=== PATIENT | female | born 1965 | race Caucasian/White ===

== ENCOUNTER 2016-08-24 11:50 | Emergency (ER) | payer OTHER ==
[~2016-08-24] VITALS: Ht 170.2 cm; Wt 75.0 kg
[~2016-08-24 11:50] MED LIST: ALBU18HF; BECL8.7A6 INHALATION; CHOL500050 PO; DIAZ5TAB PO; DULO30CA PO; GABA300C PO; HYDR50CA3 PO; IBUP800T28 PO; ONDA4TAB9 PO; PANT40TA3 PO; PROP120C2 PO; TRAM50TA2 PO; TRAZ-115 PO; VENL75CA95 PO
[2016-08-24 11:57] VITALS: PULSE 88; RESP 22; O2SAT 100
--- NOTE | 2016-08-24 12:50 | DRSVH ---
PROCEDURE: X-RAY FINGERS, TWO VIEWS INDICATIONS: Thumb swollen/black&blue/painful TECHNIQUE: AP hand, 2 views of the right first finger(s) acquired. COMPARISON: None. FINDINGS: Bones: No fractures or dislocations. No suspicious bony lesions. Mild first CMC osteoarthritic dege nerative changes are noted. Soft tissues: No suspicious soft tissue calcifications. IMPRESSION: No fracture. No osseous lesion. If symptoms and/or clinical suspicion for pathology pers ists, further assessment with repeat radiographs or advanced imaging (e.g. CT, MRI or bone scan) may be helpful for further assessment. Dictated by: Samantha Costa MD, PhD on 08/24/2016 at 12:49 Approved by: Samantha Costa MD, PhD on 08/24/2016 at 12:49
--- NOTE | 2016-08-24 12:52 | DRSVH ---
PROCEDURE: X-RAY RIGHT WRIST COMPLETE, MINIMUM THREE VIEWS ([id number]) INDICATIONS: swollen/black&blue/painful TECHNIQUE: 3 views of the wrist were acquired. COMPARISON: None. FINDINGS: Bones: No fractures or dislocations. No suspicious bony lesions. Scaphoid view: Scaphoid is intact Soft tissues: No suspicious soft tissue calcifications. IMPRESSION: No fracture. No acute osseous lesion. If symptoms and/or clinical suspicion for patholog y persists, further assessment with repeat radiographs or advanced imaging (e.g. CT, MRI or bone scan ) may be helpful for further assessment. Dictated by: Samantha Costa MD, PhD on 08/24/2016 at 12:51 Approved by: Samantha Costa MD, PhD on 08/24/2016 at 12:51
[2016-08-24] MEDS ORDERED: Ketorolac 30 mg/mL 2 mL Inj IM ONE (14:00)
--- NOTE | 2016-08-24 14:47 | DRSVH ---
PROCEDURE: X-RAY RIGHT FOREARM, TWO VIEWS ([id number]) INDICATIONS: arm pain TECHNIQUE: 2 views of the forearm were acquired. COMPARISON: None. FINDINGS: Bones: No fractures or dislocations. No suspicious bony lesions. Soft tissues: No suspicious soft tissue calcifications or masses. IMPRESSION: No trauma found. Source of pain is not seen. Dictated by: Matthieu Esquivel M.D. on 08/24/2016 at 14:45 Approved by: Matthieu Esquivel M.D. on 08/24/2016 at 14:45
--- NOTE | 2016-08-24 15:07 | DRSVH ---
PROCEDURE: X-RAY RIGHT ELBOW, TWO VIEWS ([id number]) INDICATIONS: arm pain TECHNIQUE: 2 views of the elbow were acquired. COMPARISON: None. FINDINGS: Bones: No fractures or dislocations. No suspicious bony lesions. Soft tissues: No elbow joint effusion. No suspicious soft tissue calcifications. IMPRESSION: No acute disease, source of pain is not seen. Dictated by: Matthieu Esquivel M.D. on 08/24/2016 at 15:05 Approved by: Matthieu Esquivel M.D. on 08/24/2016 at 15:05
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
[2016-08-24 18:16] VITALS: BP 128/85; RESP 18; O2SAT 99
== END 2016-08-24 18:17 | disposition home or self-care (01) ==
LOC: SED 11:50
DX: S60.221A Contusion of right hand, initial encounter (principal); Y04.0XXA Assault by unarmed brawl or fight, initial encounter; Y93.89 Activity, other specified; Y99.8 Other external cause status; Y92.019 Unspecified place in single-family (private) house as the place of occurrence of the external cause; F17.200 Nicotine dependence, unspecified, uncomplicated; K21.9 Gastro-esophageal reflux disease without esophagitis; Z87.39 Personal history of other diseases of the musculoskeletal system and connective tissue; Z59.0 Homelessness; Z88.5 Allergy status to narcotic agent; Z88.8 Allergy status to other drugs, medicaments and biological substances
CPT/HCPCS: 29125; 73070; 73090; 73110; 73140; 90791; 96372; 99284; G0463; J1885

== ENCOUNTER 2016-11-07 10:48 | Emergency (ER) | payer OTHER ==
[~2016-11-07] VITALS: Ht 170.2 cm; Wt 65.9 kg
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
[2016-11-07] MEDS ORDERED: 0.9% Sodium Chloride 1,000 ML IV ONE (10:55)
[2016-11-07 11:02] VITALS: BP 156/92; PULSE 108; RESP 28; O2SAT 100
[2016-11-07 11:16] LABS: Mean Corpuscular Hemoglobin 28.4 pg (27.0-35.0); Mean Corpuscular Volume 83.9 fL (81-100)
[2016-11-07] MEDS ORDERED: LORazepam 2 mg Tablet PO ONE (11:55)
[2016-11-07 13:00] VITALS: BP 148/83; PULSE 83; RESP 18; O2SAT 99
[2016-11-07] MEDS ORDERED: cefTRIAXone Inj 1,000 MG in Dextrose 5% Minibag Plus 50 ML IV ONE (13:25)
[2016-11-07] MEDS ORDERED: CEPH-512 PO (14:17)
[2016-11-07 14:43] VITALS: BP 142/84; PULSE 108; RESP 15; O2SAT 99
== END 2016-11-07 14:44 | disposition home or self-care (01) ==
LOC: SED 10:48
DX: N39.0 Urinary tract infection, site not specified (principal); T43.214A Poisoning by selective serotonin and norepinephrine reuptake inhibitors, undetermined, initial encounter; X58.XXXA Exposure to other specified factors, initial encounter; Y92.9 Unspecified place or not applicable; Y93.89 Activity, other specified; Y99.8 Other external cause status; F43.0 Acute stress reaction; M54.9 Dorsalgia, unspecified; G89.29 Other chronic pain; H93.13 Tinnitus, bilateral; N93.9 Abnormal uterine and vaginal bleeding, unspecified; K21.9 Gastro-esophageal reflux disease without esophagitis; F17.200 Nicotine dependence, unspecified, uncomplicated; Z59.0 Homelessness; Z88.8 Allergy status to other drugs, medicaments and biological substances; Z88.5 Allergy status to narcotic agent
CPT/HCPCS: 36415; 80053; 85027; 93005; 96361; 96365; 99285; G0480; J0696; J7030

== ENCOUNTER 2017-03-29 09:35 | Emergency (ER) | payer OTHER ==
[~2017-03-29 09:35] MED LIST changes: +CEPH-512 PO
[2017-03-29 09:56] VITALS: BP 164/95; PULSE 76; RESP 20; O2SAT 100
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
[2017-03-29 12:21] VITALS: PULSE 76; RESP 14; O2SAT 92
== END 2017-03-29 11:55 | disposition home or self-care (01) ==
LOC: SED 09:35 → EDUNIT# 09:35 → EDBD 09:35 → SED 11:55
DX: M54.2 Cervicalgia (principal); G89.29 Other chronic pain; M54.5 Low back pain; Y08.89XS Assault by other specified means, sequela; Y93.89 Activity, other specified; Y92.9 Unspecified place or not applicable; Y99.8 Other external cause status; F41.9 Anxiety disorder, unspecified; F32.9 Major depressive disorder, single episode, unspecified; F17.200 Nicotine dependence, unspecified, uncomplicated; Z88.8 Allergy status to other drugs, medicaments and biological substances; Z59.0 Homelessness; Z88.5 Allergy status to narcotic agent
CPT/HCPCS: 96372; 99283; J1885

== ENCOUNTER 2017-04-09 11:56 | Emergency (ER) | payer OTHER ==
[2017-04-09 12:28] VITALS: BP 120/81; PULSE 90; RESP 24; O2SAT 99
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
[2017-04-09 17:47] VITALS: PULSE 95; O2SAT 96
--- NOTE | 2017-04-09 22:28 | NUR ---
ED [employer] Note D/A: Pt presented to the ED after she was unable to get a bed at [facility]. Pt [facility] to [facility] P: [employer] faxed the necessary clinical information to [facility] and Pt was declined due to her primary concern being homelessness. [employer] arranged Medicaid Transportation for Pt to a friend's home. Clementine Kelly, [employer], AAC
== END 2017-04-09 17:50 | disposition home or self-care (01) ==
LOC: SED 11:56 → EDBD 11:56 → SED 17:50
DX: M54.2 Cervicalgia (principal); M54.5 Low back pain; F32.9 Major depressive disorder, single episode, unspecified; F41.9 Anxiety disorder, unspecified; F17.200 Nicotine dependence, unspecified, uncomplicated; Z88.8 Allergy status to other drugs, medicaments and biological substances; Z88.5 Allergy status to narcotic agent; Z59.0 Homelessness
CPT/HCPCS: 72040; 72100; 81002; 82075; 96372; 99284; J1885